=== PATIENT | female | born 1995 | race Caucasian/White ===

== ENCOUNTER 2016-07-07 02:31 | Emergency (ER) | payer OTHER ==
[~2016-07-07] VITALS: Ht 154.9 cm; Wt 49.9 kg
[2016-07-07 02:33] VITALS: BP 104/62
--- NOTE | 2016-07-07 02:46 | NUR ---
TO ER OF1
--- NOTE | 2016-07-07 02:54 | NUR ---
Patient being evaluated by physician.
[2016-07-07] MEDS ORDERED: ACETAMIN/CODEINE 120/12MG-5ML 5 ML UDC PO ONE (02:55)
[2016-07-07 03:41] VITALS: BP 97/59
--- NOTE | 2016-07-07 03:41 | NUR ---
Patient discharged with v/s stable. Written and verbal after care instructions given and explained. Patient alert, oriented and verbalized understanding of instructions. Ambulatory with steady gait. All questions addressed prior to discharge. ID band removed. Patient advised to follow up with PMD. Rx of amoxicillin and Tylenol #3 given. Patient educated on indication of medication including possible reaction and side effects. Opportunity to ask questions provided and answered.
== END 2016-07-07 03:41 | disposition home or self-care (01) ==
LOC: MED 02:31
DX: O26.892 Other specified pregnancy related conditions, second trimester (principal); J02.9 Acute pharyngitis, unspecified; O92.03 Retracted nipple associated with lactation
CPT/HCPCS: 99283

== ENCOUNTER 2018-04-07 16:51 | Emergency (ER) | payer MEDICAID, OTHER ==
[~2018-04-07] VITALS: Ht 154.9 cm; Wt 45.4 kg
[2018-04-07 16:51] VITALS: BP 115/79
--- NOTE | 2018-04-07 16:51 | NUR ---
PATIENT KOJO MARIE TO ER CHAIR Nakita
--- NOTE | 2018-04-07 17:00 | NUR ---
PT IS A 22 Y/O FEMALE BIB [employer] WHO PRESENTS TO THE ED FOR PREBOOK. PER PT SHE IS APPROX 3 MONTHS AND REPORTS DRUG USE. PT DENIES CP, SOB, N/V/D. PT DENIES PAIN AT THIS TIME. PT REPOSITIONED FOR COMFORT, SITTING IN CHAIR WITH PD. ER MD DR. PRICE NOTIFIED. WILL CONTINUE TO MONITOR. PMH--ASTHMA NKA
--- NOTE | 2018-04-07 17:15 | NUR ---
PATIENT NOW C/O OF 08/15 ABD PAIN. ER MD NOTIFIED.
--- NOTE | 2018-04-07 17:20 | NUR ---
REPORT GIVEN TO SHIMA PADILLA.
[2018-04-07 17:46] LABS: BASOPHILS % (AUTO) 0.3 % (0.0-2.0); EOSINOPHILS # (AUTO) 0.1 K/uL (0-0.4); EOSINOPHILS % (AUTO) 0.4 % (0.0-4.0); HEMATOCRIT 41.5 % (36-48); HEMOGLOBIN 13.8 g/dL (12.0-16.0); LYMPHOCYTES # (AUTO) 1.4 K/uL (2.5-16.5); LYMPHOCYTES % (AUTO) 10.7 % (20.5-51.1); MEAN CORPUSCULAR HEMOGLOBIN 30 pg (27-31); MEAN CORPUSCULAR HGB CONC 33 g/dL (33-37); MEAN CORPUSCULAR VOLUME 90.2 fL (80-94); MONOCYTES # (AUTO) 0.7 K/uL (0.8-1.0); NEUTROPHILS # (AUTO) 11.1 K/uL (1.8-7.7); NEUTROPHILS % (AUTO) 83.6 % (42.2-75.2); PLATELET COUNT (AUTO) 327 K/uL (140-450); RED BLOOD CELL COUNT(AUTO) 4.61 MIL/uL (4.20-5.40); WHITE BLOOD COUNT (AUTO) 13.3 K/uL (4.8-10.8)
[2018-04-07 17:50] LABS: APPEARANCE,URINE CLEAR (CLEAR); BILIRUBIN,URINE NEGATIVE (NEGATIVE); BLOOD, URINE NEGATIVE (NEGATIVE); COLOR,URINE YELLOW (YELLOW); LEUKOCYTE ESTERASE ,URINE NEGATIVE (NEGATIVE); NITRITE, URINE NEGATIVE (NEGATIVE); UGLUCOSE NEGATIVE (NEGATIVE)
[2018-04-07] MEDS ORDERED: NACL 0.9% 1,000 ML IV ONE (18:10)
--- NOTE | 2018-04-07 18:19 | NUR ---
BEDSIDE ULTRASOUND COMPLETED
--- NOTE | 2018-04-07 18:30 | NUR ---
PT'S FAMILY MEMBER AT BEDSIDE PER PT'S REQUEST
[2018-04-07 18:58] VITALS: BP 115/79
--- NOTE | 2018-04-07 19:00 | NUR ---
Patient discharged with v/s stable. Written and verbal after care instructions given and explained. Patient verbalized understanding. Ambulatory with steady gait. All questions addressed prior to discharge. Advised to follow up with PMD.
== END 2018-04-07 19:00 | disposition home or self-care (01) ==
LOC: MED 16:51
DX: O20.0 Threatened abortion (principal); O21.8 Other vomiting complicating pregnancy; Z3A.10 10 weeks gestation of pregnancy; Z90.49 Acquired absence of other specified parts of digestive tract
CPT/HCPCS: 36415; 76817; 81003; 81025; 84702; 85025; 86900; 86901; 99284; J7030; Q0092

== ENCOUNTER 2018-12-30 23:12 | Inpatient (IN) | payer MEDICAID ==
[~2018-12-30] VITALS: Ht 154.9 cm; Wt 53.5 kg
[2018-12-30 23:22] VITALS: BP 140/87
--- NOTE | 2018-12-30 23:25 | NUR ---
PT WHEELCHAIR ASSITED TO BED #9
[2018-12-30] MEDS ORDERED: NACL 0.9% 1,000 ML IV ONE (23:30)
[2018-12-30] MEDS ORDERED: ONDANSETRON 4 MG/2 ML VIAL IVP ONE (23:30)
[2018-12-30] MEDS ORDERED: MORPHINE SULFATE 4 MG/ML SYR IVP ONE (23:30)
--- NOTE | 2018-12-30 23:30 | NUR ---
23 Y/O F PRESENTS TO ED WITH C/O SUDDEN ONSET OF RLQ PAIN X1 DAY. 9/10 SHARP, CONSTANT PAIN THAT RADIATES TO HER BACK. +N/V/D. ABDOMEN SOFT AND DIFFUSE TENDER TO PALPATION. BOWEL SOUNDS PRESENT X4 QUADRANTS. PT PLACED IN GOWN AND ATTACHED TO MONITORING SYSTEM. BEDRAILS X2 UP. FAMILY AT BEDSIDE. WILL CONTINUE TO MONITOR.
[2018-12-30 23:47] LABS: BASOPHILS % (AUTO) 0.1 % (0.0-2.0); EOSINOPHILS # (AUTO) 0.1 K/uL (0-0.4); HEMATOCRIT 38.6 % (36-48); LYMPHOCYTES # (AUTO) 2.3 K/uL (2.5-16.5); LYMPHOCYTES % (AUTO) 35.7 % (20.5-51.1); MEAN CORPUSCULAR HEMOGLOBIN 31 pg (27-31); MEAN CORPUSCULAR HGB CONC 34 g/dL (33-37); MEAN CORPUSCULAR VOLUME 91.1 fL (80-94); MONOCYTES # (AUTO) 0.6 K/uL (0.8-1.0); MONOCYTES % (AUTO) 8.9 % (1.7-9.3); NEUTROPHILS # (AUTO) 3.4 K/uL (1.8-7.7); NEUTROPHILS % (AUTO) 53.3 % (42.2-75.2); PLATELET COUNT (AUTO) 174 K/uL (140-450); RED BLOOD CELL COUNT(AUTO) 4.24 MIL/uL (4.20-5.40); RED CELL DISTRIBUTION WIDTH 14.1 % (11.6-13.7); WHITE BLOOD COUNT (AUTO) 6.5 K/uL (4.8-10.8)
--- NOTE | 2018-12-30 23:51 | NUR ---
PATIENT UNABLE TO PROVIDE URINE SPECIMEN AT THIS TIME, IV FLUIDS INFUSING AT THIS TIME.
[2018-12-30 23:58] LABS: ANION GAP 14.2 (8-16); CARBON DIOXIDE 26.6 mmol/L (21-32); CREATININE 0.8 mg/dL (0.6-1.3); POTASSIUM 3.8 mmol/L (3.5-5.1)
[2018-12-31 00:04] LABS: ALBUMIN 3.8 g/dL (3.4-5.0); TOTAL BILIRUBIN 0.3 mg/dL (0.0-1.0)
[2018-12-31 00:12] LABS: CREATINE KINASE MB 0.6 ng/mL (0-3.6)
--- NOTE | 2018-12-31 00:12 | NUR ---
PT AMBULATED TO THE RESTROOM, SLOW STEADY GAIT OBSERVED.
[2018-12-31 00:24] LABS: APPEARANCE,URINE SL CLOUDY (CLEAR); BILIRUBIN,URINE NEGATIVE (NEGATIVE); BLOOD, URINE TRACE-L (NEGATIVE); COLOR,URINE YELLOW (YELLOW); LEUKOCYTE ESTERASE ,URINE 2+ (NEGATIVE); NITRITE, URINE NEGATIVE (NEGATIVE); UGLUCOSE NEGATIVE (NEGATIVE)
--- NOTE | 2018-12-31 00:26 | NUR ---
PT STATES DECREASED ABDOMINAL PAIN, 5/10 AT THIS TIME
[2018-12-31 00:32] LABS: WBC,URINE TOO MANY TO COUNT /HPF (0-5)
--- NOTE | 2018-12-31 00:32 | NUR ---
PATIENT TAKEN TO CT VIA WHEELCHAIR.
[2018-12-31 00:33] LABS: RBC,URINE 0-5 /HPF (0-5)
--- NOTE | 2018-12-31 00:52 | NUR ---
PATIENT BACK FROM CT, NO INCIDENTS NOTED.
[2018-12-31] MEDS ORDERED: cefTRIAXone 1,000 MG VIAL ONE (01:22)
--- NOTE | 2018-12-31 01:36 | NUR ---
ER MD AT BEDSIDE TO UPDATE PATIENT ON CAT SCAN RESULTS.
[2018-12-31] MEDS ORDERED: DOCUSATE SODIUM 100 MG GELCAP PO PRN (01:45)
[2018-12-31] MEDS ORDERED: ONDANSETRON 4 MG/2 ML VIAL IM/IVP PRN (01:45)
[2018-12-31] MEDS ORDERED: ACETAMINOPHEN 325 MG TAB PO PRN (01:45)
[2018-12-31] MEDS ORDERED: FERR-15 PO (01:46)
[2018-12-31] MEDS ORDERED: CIPR500T4 PO (01:46)
[2018-12-31] MEDS ORDERED: IBUP-2213 PO (01:46)
[2018-12-31] MEDS ORDERED: ONDA8TAB PO (01:46)
[2018-12-31] MEDS ORDERED: PREN-380 PO (02:08)
--- NOTE | 2018-12-31 02:19 | NUR ---
Patient will be admitted to care of . Admited to [facility]. Will go to room bed 126A. Belongings list completed and initialed. Report to VALERIE Roblero.
[2018-12-31 02:20] VITALS: BP 105/69
[2018-12-31 02:20] LABS: MAGNESIUM 1.6 mg/dL (1.8-2.4); PHOSPHORUS 3.7 mg/dL (2.5-4.9); THYROID STIMULATING HORMONE 1.63 uIU/mL (0.34-3.74)
--- NOTE | 2018-12-31 02:20 | NUR ---
REPORT RECEIVED FROM ED NURSE AT BEDSIDE. PT IN STABLE CONDITION. AAOX4. INTRODUCED SELF TO PT. BOARD UPDATED. PT HAS COMPLAINTS OF PAIN. WILL MEDICATE. NO SOB. AFEBRILE. PT IS AMBULATORY. IV SITE L AC 20G RUNNING NS@60ML/HR PATENT AND INTACT. SKIN WARM, DRY, AND INTACT WITH NO OPEN WOUNDS. BED LOCKED IN LOW POSITION. CALL DEVRIES WITHIN REACH. SAFETY PRECAUTION IN PLACE. ALL NEEDS MET AT THIS TIME.
[2018-12-31 02:22] LABS: PROTHROMBIN TIME 10.5 secs (10.8-13.4)
[2018-12-31] MEDS ORDERED: MORPHINE SULFATE 2 MG/ML SYR IVP SCH (02:30)
[2018-12-31 02:40] LABS: BARBITURATE, URINE NEG. ng/ml (NEG <=200); BENZODIAZEPINE, URINE NEG. ng/mL (NEG <=200); CANNABINOID, URINE NEG. ng/mL (NEG <=50); COCAINE, URINE NEG. ng/mL (NEG <=300); OPIATE, URINE POS. ng/mL (NEG <=2000); PHENCYCLIDINE SCREEN,URINE NEG. ng/mL (NEG <=25)
[2018-12-31] MEDS: NACL 0.9% 1,000 ML IV SCH ×2 (02:41→18:25)
[2018-12-31] MEDS ORDERED: MAG SULF 2000 MG/WATER PREMIX 50 ML IV SCH (02:45)
--- NOTE | 2018-12-31 02:52 | NUR ---
HUNG AND RUNNING FOR LEVEL OF 1.6. MORPHINE GIVEN FOR 6/10 ABDOMINAL PAIN. PT TOLERATED WELL.
[2018-12-31] MEDS: PHENAZOPYRIDINE 100 MG TAB PO SCH ×3 (04:07→20:16)
--- NOTE | 2018-12-31 04:07 | NUR ---
PYRIDIUM GIVEN PO. PT TOLERATED WELL.
[2018-12-31 06:29] LABS: EOSINOPHILS # (AUTO) 0.1 K/uL (0-0.4); EOSINOPHILS % (AUTO) 1.6 % (0.0-4.0); HEMATOCRIT 36.5 % (36-48); HEMOGLOBIN 12.2 g/dL (12.0-16.0); LYMPHOCYTES # (AUTO) 1.8 K/uL (2.5-16.5); LYMPHOCYTES % (AUTO) 32.6 % (20.5-51.1); MEAN CORPUSCULAR HEMOGLOBIN 31 pg (27-31); MEAN CORPUSCULAR HGB CONC 34 g/dL (33-37); MEAN CORPUSCULAR VOLUME 92.4 fL (80-94); MONOCYTES # (AUTO) 0.5 K/uL (0.8-1.0); MONOCYTES % (AUTO) 9.4 % (1.7-9.3); NEUTROPHILS # (AUTO) 3.1 K/uL (1.8-7.7); NEUTROPHILS % (AUTO) 56.4 % (42.2-75.2); PLATELET COUNT (AUTO) 156 K/uL (140-450); RED BLOOD CELL COUNT(AUTO) 3.95 MIL/uL (4.20-5.40); WHITE BLOOD COUNT (AUTO) 5.5 K/uL (4.8-10.8)
--- NOTE | 2018-12-31 06:50 | NUR ---
PT SLEEPING COMFORTABLY IN BED BUT AROUSABLE. NO S/S OF DISTRESS NOTED. PT IN STABLE CONDITION.
--- NOTE | 2018-12-31 07:00 | NUR ---
RECEIVED REPORT FROM NIGHT RN. PATIENT IS RESTING QUIETLY IN BED, FATHER AT BEDSIDE. PATIENT IS ON ROOM AIR, AAOX4. FULL CODE, NKA. IV PRESENT TO LEFT FOREARM. LBM 12/30. SKIN IS INTACT. PATIENT IS CURRENTLY EXPERIENCING PAIN BUT NO PAIN RX IN [facility]. INFORMED PATIENT THAT RESIDENTS WILL BE ROUNDING AND WILL INFORM THEM OF PAIN ONCE ROUNDING IS INITIATED. WILL REVIEW AND CONTINUE [facility] PLAN OF CARE FOR THE DAY
[2018-12-31 07:10] LABS: MAGNESIUM 2.3 mg/dL (1.8-2.4); PHOSPHORUS 3.8 mg/dL (2.5-4.9)
[2018-12-31 08:00] VITALS: BP 112/77
[2018-12-31 08:00] LABS: ANION GAP 11.7 (8-16); CARBON DIOXIDE 24.9 mmol/L (21-32); CREATININE 0.7 mg/dL (0.6-1.3); POTASSIUM 3.6 mmol/L (3.5-5.1)
--- NOTE | 2018-12-31 08:20 | NUR ---
PATIENT HAS BEEN SCREENED AND CATEGORIZED LOW NUTRITION RISK. PATIENT WILL BE SEEN WITHIN 7 DAYS OF ADMISSION. 01/06/[address]
[2018-12-31] MEDS ORDERED: NON-FORMULARY ITEM (Prenatal Vit/Iron Fumarate/FA (Prenatal Tablet) 1 TAB) PO SCH (09:00)
[2018-12-31] MEDS: LACTOBACILLUS RHAMNOSUS GG 1 EACH CAP PO SCH (09:14)
[2018-12-31] MEDS: MULTIVIT/MIN/CA/FE/FA 1 TAB PO SCH (09:15)
--- NOTE | 2018-12-31 09:16 | NUR ---
ADMINISTERED MORNING MEDICATION. PATIENT RE-STATED SHE IS IN PAIN. TALKED TO RESIDENT DR FIELD ABOUT ORDERING SOMETHING FOR PAIN. WILL F/U
[2018-12-31] MEDS: KETOROLAC 30 MG/ML VIAL IVP PRN ×2 (10:39→16:27)
--- NOTE | 2018-12-31 10:42 | NUR ---
ADMINISTERED PAIN MEDICATION FOR PAIN 07/16. WILL RE-ASSESS PAIN
--- NOTE | 2018-12-31 10:55 | NUR ---
DC PLANNIN23 YEAR OLD FEMALE PATIENT FROM HOME, ADMITTED DUE TO CONSTANT ABDOMINA PAIN X1 DAY. PAST MEDICAL AND SURGICAL HISTORY INCLUDE DIVERTICULITIS AND APPENDECTOMY. INITIAL DIAGNOSIS OF UTI. ABDOMINAL CT NORMAL. CXR NORMAL. ON ROCEPHIN. ON ROOM AIR. DC PLAN PENDING ON PATIENT'S RESPONSE TO TREATMENT.
--- NOTE | 2018-12-31 11:12 | NUR ---
PT IS SLEEPING IN BED, VISIBLE CHEST RISE AND FALL. NO COMPLAINTS AT THIS TIME.
--- NOTE | 2018-12-31 13:00 | NUR ---
PT IS SITTING UP IN BED EATING LUNCH. NO COMPLAINTS AT THIS TIME. FATHER IS AT BEDSIDE.
[2018-12-31 16:00] VITALS: BP 113/74
[2018-12-31 16:03] LABS: CHOL/HDL RATIO 3.1 (1-4.5)
--- NOTE | 2018-12-31 16:14 | NUR ---
Tire Inspector Note: Basic Screen: Yes High Risk DC Screen [employer]: JACLYN Clements Relationship: MOTHER Pre-Admission Living Arrangements: Lives with Other Other: MOTHER Prior ADL Independent Current Home Health Name/Tel: N/A Current DME/02 Name/Tel: N/A Current Hospice Name/Tel: N/A Current Dialysis Name/Tel: N/A Healthcare Decision Maker: Patient Advance Directive No - REFUSED Physician Orders for Life Sustaining Treatment Form No Patient/Family Have Educational Needs No Information Taught: Advance Directive Person Taught: Patient Teaching Tools: Verbal Factors Affecting Learning: None Evaluation: Verbalizes Understanding Needs Additional Education: No Discipline: Case Mgt/Social Svcs Tentative Discharge Plan/Destination: No Needs Identified Will require assistance post discharge: No Referred to Medical Care Administrator: No Tentative Discharge Plan Summary: Patient is a 23-year-old female admitted for UTI. Patient has PMHX of diverticulitis. Patient was admitted from home. HIRAM verified demographics with patient. Patient stated she lives with her mother at [address] [place] [address] with her mother. Patient denies history of mental health and history of substance abuse. SW offered education for advanced directive and patient refused at this time. Patients tentative plan after discharge is to return home. No further needs identified. Signature: LESLY Sparks Date: Dec 31, 2018 Time: 16:20
--- NOTE | 2018-12-31 16:30 | NUR ---
ADMINISTERED ZOFRAN FOR NAUSEA AND TORADOL FOR PAIN 07/16.
--- NOTE | 2018-12-31 18:20 | NUR ---
PT SLEEPING QUIETLY IN BED. NO COMPLAINTS, NO DISTRESS. ALL NEEDS HAVE BEEN MET. WILL ENDORSE TO NEXT SHIFT FOR CONTINUITY OF CARE
--- NOTE | 2018-12-31 19:35 | NUR ---
Received endorsement from AM shift RN; patient A/Ox4, able to make needs known, Nam[place]ian speaking, ambulatory. Patient eating dinner; introduced self, updated board. No SOB or distress noted, on room air. IV site noted on left antecubital, 20 gauge, running NS at 60mL/hr. Skin intact. Bed in the lowest position, call light within reach. Initial assessment done. Will continue to monitor.
--- NOTE | 2018-12-31 21:25 | NUR ---
Due meds given, tolerated well.
--- NOTE | 2018-12-31 23:40 | NUR ---
Vitals taken; patient asleep, eyes closed, visible chest rise and fall noted.
[2019-01-01] VITALS: BP 108/76
--- NOTE | 2019-01-01 01:10 | NUR ---
Rounds done; patient asleep, eyes closed, visible chest rise and fall noted.
--- NOTE | 2019-01-01 03:40 | NUR ---
Checks made; no SOB or distress noted. Patient resting comfortably, visible chest rise and fall noted.
[2019-01-01] MEDS: PHENAZOPYRIDINE 100 MG TAB PO SCH ×2 (04:28→12:45)
--- NOTE | 2019-01-01 05:16 | NUR ---
Rounds done; no SOB or distress noted.
[2019-01-01 05:33] LABS: BASOPHILS % (AUTO) 0.3 % (0.0-2.0); EOSINOPHILS # (AUTO) 0.1 K/uL (0-0.4); EOSINOPHILS % (AUTO) 3.1 % (0.0-4.0); HEMATOCRIT 36.3 % (36-48); HEMOGLOBIN 12.3 g/dL (12.0-16.0); LYMPHOCYTES # (AUTO) 2.3 K/uL (2.5-16.5); LYMPHOCYTES % (AUTO) 51.5 % (20.5-51.1); MEAN CORPUSCULAR HEMOGLOBIN 31 pg (27-31); MEAN CORPUSCULAR HGB CONC 34 g/dL (33-37); MEAN CORPUSCULAR VOLUME 90.9 fL (80-94); MONOCYTES # (AUTO) 0.4 K/uL (0.8-1.0); MONOCYTES % (AUTO) 9.5 % (1.7-9.3); NEUTROPHILS # (AUTO) 1.6 K/uL (1.8-7.7); NEUTROPHILS % (AUTO) 35.6 % (42.2-75.2); PLATELET COUNT (AUTO) 174 K/uL (140-450); RED BLOOD CELL COUNT(AUTO) 3.99 MIL/uL (4.20-5.40); RED CELL DISTRIBUTION WIDTH 13.8 % (11.6-13.7); WHITE BLOOD COUNT (AUTO) 4.5 K/uL (4.8-10.8)
[2019-01-01] MEDS: KETOROLAC 30 MG/ML VIAL IVP PRN (05:47)
--- NOTE | 2019-01-01 06:08 | NUR ---
Vitals stable, due meds given. Will endorse to AM shift RN for continuity of care.
[2019-01-01 07:00] LABS: ANION GAP 10.8 (8-16); CARBON DIOXIDE 27.5 mmol/L (21-32); CREATININE 0.6 mg/dL (0.6-1.3); POTASSIUM 3.3 mmol/L (3.5-5.1)
--- NOTE | 2019-01-01 07:13 | NUR ---
RECEIVED BED SIDE REPORT FROM TIME STUDY ENGINEER NURSE. PATIENT IN STABLE CONDITION, NO DISTRESS NOTED. WILL CONTINUE TO FOLLOW UP.
[2019-01-01 08:00] VITALS: BP 96/58
[2019-01-01] MEDS ORDERED: CEPH250C16 PO (08:38)
[2019-01-01] MEDS ORDERED: DOCU-299 PO (08:38)
[2019-01-01] MEDS ORDERED: HYDR-5122 PO (08:38)
[2019-01-01] MEDS ORDERED: LACT1CAP21 PO (08:38)
[2019-01-01] MEDS: MULTIVIT/MIN/CA/FE/FA 1 TAB PO SCH (09:29)
[2019-01-01] MEDS: LACTOBACILLUS RHAMNOSUS GG 1 EACH CAP PO SCH (09:29)
--- NOTE | 2019-01-01 09:34 | NUR ---
AT THE BEDSIDE WITH PATIENT, CALM, NOT DISTRESS NOTED. TALKING TO SPOUSE AT THE BEDSIDE. SCHEDULED MEDS GIVEN AT THIS TIME.
[2019-01-01] MEDS ORDERED: INFLUENZA VACCINE QUAD 0.5 ML SYR IMVAC PRN (10:15)
[2019-01-01] MEDS: NACL 0.9% 1,000 ML IV SCH (11:05)
[2019-01-01] MEDS ORDERED: POTASSIUM CHLORIDE 10 MEQ TABER PO SCH (11:30)
--- NOTE | 2019-01-01 11:55 | NUR ---
PATIENT RESTING IN BED, CALM WITH FATHER AT THE BEDSIDE. WILL CONTINUE TO MONITOR.
[2019-01-01] MEDS ORDERED: POTASSIUM CHLORIDE 40 MEQ, LIDOCAINE MPF 1% 25 MG in NACL 0.9% 250 ML IV SCH (12:00)
--- NOTE | 2019-01-01 13:23 | NUR ---
AT THE BEDSIDE WITH PATIENT FOR DISCHARGE INSTRUCTIONS. PATIENT EDUCATED ON MEDICATION REGIMEN AND PLAN OF CARE. PATIENT VERBALIZED UNDERSTANDING TO FOLLOW UP WITH DR GLORIA. MEDICATIONS GIVEN TO PATIENT ALONG WITH A LIST OF TOTAL MEDICATIONS GIVEN DURING HOSPITALIZATION. EXCUSE NOTE FOR WORK AND SCHOOL GIVEN TO PATIENT. ANSWERED ALL PATIENTS QUESTION . PATIENT IS TO GET DRESS FOR DISCHARGE.
--- NOTE | 2019-01-01 13:29 | NUR ---
PATIENT DRESSED, IN STABLE CONDITION, IV DISCONTINUED WITH LUMEN IN TACT, NO SWELLING OR REDNESS NOTED. PATIENT ESCORTED WITH FATHER TO THE LOBBY. PATIENT DISCHARGED AT THIS TIME.
== END 2019-01-01 13:30 | disposition home or self-care (01) | DRG 463 ==
LOC: MED 23:12 → MMU 12-31 01:52
PROVIDERS: ADMIT General Practice; ATTEND General Practice
DX: N39.0 Urinary tract infection, site not specified (principal); E83.42 Hypomagnesemia; R82.4 Acetonuria; R31.9 Hematuria, unspecified; Z79.899 Other long term (current) drug therapy; Z90.49 Acquired absence of other specified parts of digestive tract
CPT/HCPCS: 36415; 71045; 80048; 80053; 80305; 81001; 82150; 82550; 82553; 83036; 83605; 83690; 83735; 83880; 84100; 84443; 84484; 85025; 85610; 85730; 87040; 87081; 87086; 96361; 96365; 96375; 99285; J0696; J1885; J2001; J2270; J2405; J3475; J3480; J7030; J7060; Q0092

== ENCOUNTER 2023-03-06 18:13 | Emergency (ER) | payer OTHER ==
[~2023-03-06] VITALS: Ht 154.9 cm; Wt 68.0 kg
[~2023-03-06 18:13] MED LIST: CEPH250C16 PO; DOCU-299 PO; HYDR-5122 PO; LACT1CAP21 PO; ONDA8TAB87 PO; PREN-380 PO
[2023-03-06 18:27] VITALS: BP 117/73; PULSE 103; RESP 16; TEMP 97.8; O2SAT 95
[2023-03-06 18:59] LABS: APPEARANCE,URINE CLEAR (CLEAR); BILIRUBIN,URINE 1+ (NEGATIVE); BLOOD, URINE NEGATIVE (NEGATIVE); COLOR,URINE YELLOW (YELLOW); LEUKOCYTE ESTERASE ,URINE NEGATIVE (NEGATIVE); NITRITE, URINE POSITIVE (NEGATIVE); PROTEIN,URINE NEGATIVE (NEGATIVE); UGLUCOSE NEGATIVE (NEGATIVE); UROBILINOGEN,URINE 0.2 EU/dL (0.2 - 1)
[2023-03-06] MEDS ORDERED: ONDANSETRON 4 MG ODT PO ONE (19:00)
[2023-03-06] MEDS ORDERED: KETOROLAC 30 MG/ML VIAL IM ONE (19:00)
[2023-03-06 19:16] LABS: ICTOTEST NEGATIVE (NEGATIVE)
[2023-03-06 19:20] LABS: BACTERIA,URINE FEW /HPF (None Seen); RBC,URINE 0-5 /HPF (0-5); SQUAMOUS EPITHELIAL CELL,UR 4-10 (MOD) /LPF (0-3 (FEW)); WBC,URINE 0-5 /HPF (0-5)
[2023-03-06] MEDS ORDERED: PYR100 PO (19:23)
[2023-03-06] MEDS ORDERED: CEPH250C16 PO (19:23)
== END 2023-03-06 19:32 | disposition home or self-care (01) ==
LOC: MED 18:13
DX: N30.00 Acute cystitis without hematuria (principal); Z79.899 Other long term (current) drug therapy
CPT/HCPCS: 81001; 81025; 96372; 99283; J1885; Q0162

== ENCOUNTER 2023-05-13 21:29 | Emergency (ER) | payer OTHER ==
[~2023-05-13] VITALS: Ht 152.4 cm; Wt 72.6 kg
[~2023-05-13 21:29] MED LIST changes: +PYR100 PO
[2023-05-13 21:40] VITALS: BP 111/86; PULSE 100; RESP 19; TEMP 97.9; O2SAT 99
[2023-05-13] MEDS: MORPHINE SULFATE 4 MG/ML SYR IVP ONE (23:32)
[2023-05-13 23:36] LABS: BILIRUBIN,URINE NEGATIVE (NEGATIVE); BLOOD, URINE 1+ (NEGATIVE); COLOR,URINE YELLOW (YELLOW); LEUKOCYTE ESTERASE ,URINE 1+ (NEGATIVE); NITRITE, URINE NEGATIVE (NEGATIVE); PROTEIN,URINE NEGATIVE (NEGATIVE); UGLUCOSE NEGATIVE (NEGATIVE); UROBILINOGEN,URINE 0.2 EU/dL (0.2 - 1)
[2023-05-13] MEDS: ONDANSETRON 4 MG/2 ML VIAL IVP ONE (23:36)
[2023-05-13 23:37] LABS: APPEARANCE,URINE SLIGHTLY CLOUDY (CLEAR)
[2023-05-13 23:39] LABS: BACTERIA,URINE 1+ /HPF (None Seen); MUCUS,URINE None Seen /LPF (None Seen); RBC,URINE 0-5 /HPF (0-5); SQUAMOUS EPITHELIAL CELL,UR 0-3 (FEW) /LPF (0-3 (FEW)); WBC,URINE 0-5 /HPF (0-5)
[2023-05-13 23:52] LABS: BASOPHILS % (AUTO) 0.5 % (0.0-2.0); EOSINOPHILS # (AUTO) 0.5 K/uL (0-0.4); EOSINOPHILS % (AUTO) 6.1 % (0.0-4.0); HEMATOCRIT 41.3 % (36-48); HEMOGLOBIN 14.5 g/dL (12.0-16.0); LYMPHOCYTES # (AUTO) 3.4 K/uL (2.5-16.5); LYMPHOCYTES % (AUTO) 38.3 % (20.5-51.1); MEAN CORPUSCULAR HEMOGLOBIN 32 pg (27-31); MEAN CORPUSCULAR HGB CONC 35 g/dL (33-37); MEAN CORPUSCULAR VOLUME 90.1 fL (80-94); MONOCYTES # (AUTO) 0.7 K/uL (0.8-1.0); MONOCYTES % (AUTO) 7.5 % (1.7-9.3); NEUTROPHILS # (AUTO) 4.2 K/uL (1.8-7.7); NEUTROPHILS % (AUTO) 47.6 % (42.2-75.2); PLATELET COUNT (AUTO) 340 K/uL (140-450); RED BLOOD CELL COUNT(AUTO) 4.59 MIL/uL (4.20-5.40); RED CELL DISTRIBUTION WIDTH 12.9 % (11.6-13.7); WHITE BLOOD COUNT (AUTO) 8.8 K/uL (4.8-10.8)
[2023-05-14] LABS: ANION GAP 14.1 (8-16); CALCIUM 9.4 mg/dL (8.5-10.1); CARBON DIOXIDE 25.6 mmol/L (21-32); CREATININE 0.9 mg/dL (0.6-1.3); POTASSIUM 3.7 mmol/L (3.5-5.1)
[2023-05-14] MEDS: metroNIDAZOLE 500 MG/NS PREMIX 100 ML IV ONE (00:08)
[2023-05-14] MEDS: LEVOFLOXACIN 500 MG/D5W PREMIX 100 ML IV ONE (00:08)
[2023-05-14 00:10] LABS: LACTIC ACID 1.1 mmol/L (0.4-2.0)
[2023-05-14 00:27] LABS: ALBUMIN 4.5 g/dL (3.4-5.0); BILIRUBIN,DIRECT 0.1 mg/dL (0.0-0.3); TOTAL BILIRUBIN 0.3 mg/dL (0.0-1.0); TOTAL PROTEIN, SERUM 8.1 g/dL (6.4-8.2)
[2023-05-14] MEDS: MORPHINE SULFATE 4 MG/ML SYR IVP ONE (02:52)
[2023-05-14] MEDS: ONDANSETRON 4 MG/2 ML VIAL IVP ONE (02:53)
[2023-05-14] MEDS ORDERED: CARI1.5C PO (06:25)
[2023-05-14 07:09] VITALS: BP 104/54; PULSE 75; RESP 16; TEMP 97.9; O2SAT 95
== END 2023-05-14 07:09 | disposition home or self-care (01) ==
LOC: MED 21:29
DX: K30 Functional dyspepsia (principal); Z79.899 Other long term (current) drug therapy
CPT/HCPCS: 36415; 74176; 76700; 80048; 80076; 81001; 81025; 83605; 85025; 87040; 87086; 87210; 96365; 96368; 96375; 96376; 99285; J1956; J2270; J2405; J3490; Q0092

== ENCOUNTER 2023-06-04 18:09 | Emergency (ER) | payer OTHER ==
[~2023-06-04] VITALS: Ht 157.5 cm; Wt 73.0 kg
[~2023-06-04 18:09] MED LIST changes: +CARI1.5C PO; -CEPH250C16 PO; -DOCU-299 PO; -HYDR-5122 PO; -LACT1CAP21 PO; -ONDA8TAB87 PO; -PREN-380 PO; -PYR100 PO
[2023-06-04 18:44] VITALS: BP 113/73; PULSE 92; RESP 20; TEMP 97.7; O2SAT 98
[2023-06-04] MEDS ORDERED: ONDA8TAB87 PO (19:22)
[2023-06-04] MEDS ORDERED: ACET-8905 PO (19:22)
[2023-06-04] MEDS ORDERED: DICYCLOMINE HCL LIQUID 10 MG/5 ML UDC ONE (19:26)
[2023-06-04] MEDS ORDERED: ALUMINUM HYD/MAG/SIMETHICONE 30 ML UDC ONE (19:26)
[2023-06-04] MEDS: DICYCLOMINE HCL LIQUID 20 MG, ALUMINUM HYD/MAG/SIMETHICONE 30 ML, LIDOCAINE VISCOUS 2% ... PO ONE (19:28)
[2023-06-04] MEDS: NACL 0.9% 1,000 ML IV ONE (19:29)
[2023-06-04] MEDS: KETOROLAC 30 MG/ML VIAL IVP ONE (19:29)
[2023-06-04] MEDS: ONDANSETRON 4 MG/2 ML VIAL IVP ONE (19:30)
[2023-06-04 19:37] LABS: BASOPHILS % (AUTO) 0.4 % (0.0-2.0); EOSINOPHILS # (AUTO) 0.8 K/uL (0-0.4); EOSINOPHILS % (AUTO) 8.1 % (0.0-4.0); HEMATOCRIT 40.2 % (36-48); HEMOGLOBIN 14.4 g/dL (12.0-16.0); LYMPHOCYTES # (AUTO) 3.1 K/uL (2.5-16.5); LYMPHOCYTES % (AUTO) 32.7 % (20.5-51.1); MEAN CORPUSCULAR HEMOGLOBIN 32 pg (27-31); MEAN CORPUSCULAR HGB CONC 36 g/dL (33-37); MEAN CORPUSCULAR VOLUME 89.8 fL (80-94); MONOCYTES # (AUTO) 0.7 K/uL (0.8-1.0); NEUTROPHILS # (AUTO) 4.9 K/uL (1.8-7.7); NEUTROPHILS % (AUTO) 51.8 % (42.2-75.2); PLATELET COUNT (AUTO) 324 K/uL (140-450); RED BLOOD CELL COUNT(AUTO) 4.48 MIL/uL (4.20-5.40); WHITE BLOOD COUNT (AUTO) 9.4 K/uL (4.8-10.8)
[2023-06-04 19:48] LABS: CALCIUM 9.1 mg/dL (8.5-10.1); CARBON DIOXIDE 25.6 mmol/L (21-32); CREATININE 0.7 mg/dL (0.6-1.3); POTASSIUM 3.6 mmol/L (3.5-5.1)
[2023-06-04 20:09] LABS: BILIRUBIN,DIRECT 0.1 mg/dL (0.0-0.3); TOTAL BILIRUBIN 0.3 mg/dL (0.0-1.0); TOTAL PROTEIN, SERUM 7.4 g/dL (6.4-8.2)
[2023-06-04 20:17] VITALS: BP 108/73; PULSE 92; RESP 20; TEMP 98; O2SAT 98
== END 2023-06-04 20:17 | disposition home or self-care (01) ==
LOC: MED 18:09
DX: R10.13 Epigastric pain (principal); R11.2 Nausea with vomiting, unspecified; R19.7 Diarrhea, unspecified; Z79.899 Other long term (current) drug therapy
CPT/HCPCS: 36415; 80048; 80076; 81002; 81025; 83690; 85025; 96361; 96374; 96375; 99284; J1885; J2405; J7030

== ENCOUNTER 2023-06-09 14:00 | Emergency (ER) | payer OTHER ==
[~2023-06-09] VITALS: Ht 154.9 cm; Wt 72.6 kg
[~2023-06-09 14:00] MED LIST changes: +ACET-8905 PO; +ONDA8TAB87 PO
[2023-06-09 14:23] VITALS: BP 119/84; PULSE 99; RESP 0; TEMP 98.6; O2SAT 21
[2023-06-09 15:58] LABS: BASOPHILS % (AUTO) 0.5 % (0.0-2.0); EOSINOPHILS # (AUTO) 0.6 K/uL (0-0.4); EOSINOPHILS % (AUTO) 5.6 % (0.0-4.0); HEMATOCRIT 43.6 % (36-48); HEMOGLOBIN 15.5 g/dL (12.0-16.0); LYMPHOCYTES # (AUTO) 2.8 K/uL (2.5-16.5); LYMPHOCYTES % (AUTO) 27.4 % (20.5-51.1); MEAN CORPUSCULAR HEMOGLOBIN 32 pg (27-31); MEAN CORPUSCULAR HGB CONC 35 g/dL (33-37); MEAN CORPUSCULAR VOLUME 90.6 fL (80-94); MONOCYTES # (AUTO) 0.7 K/uL (0.8-1.0); MONOCYTES % (AUTO) 6.9 % (1.7-9.3); NEUTROPHILS % (AUTO) 59.6 % (42.2-75.2); PLATELET COUNT (AUTO) 358 K/uL (140-450); RED BLOOD CELL COUNT(AUTO) 4.82 MIL/uL (4.20-5.40); WHITE BLOOD COUNT (AUTO) 10.1 K/uL (4.8-10.8)
[2023-06-09 16:04] LABS: BILIRUBIN,URINE NEGATIVE (NEGATIVE); BLOOD, URINE 3+ (NEGATIVE); COLOR,URINE YELLOW (YELLOW); LEUKOCYTE ESTERASE ,URINE NEGATIVE (NEGATIVE); NITRITE, URINE NEGATIVE (NEGATIVE); PROTEIN,URINE NEGATIVE (NEGATIVE); UGLUCOSE NEGATIVE (NEGATIVE); UROBILINOGEN,URINE 0.2 EU/dL (0.2 - 1)
[2023-06-09 16:06] LABS: APPEARANCE,URINE TURBID (CLEAR)
[2023-06-09] MEDS: NACL 0.9% 1,000 ML IV ONE (16:07)
[2023-06-09] MEDS: ALUMINUM HYD/MAG/SIMETHICONE 30 ML UDC PO ONE (16:09)
[2023-06-09] MEDS: ONDANSETRON 4 MG/2 ML VIAL IVP ONE (16:11)
[2023-06-09 16:12] LABS: ANION GAP 12.6 (8-16); CALCIUM 9.6 mg/dL (8.5-10.1); CARBON DIOXIDE 27.6 mmol/L (21-32); CREATININE 0.7 mg/dL (0.6-1.3); POTASSIUM 4.2 mmol/L (3.5-5.1)
[2023-06-09 16:16] LABS: BACTERIA,URINE FEW /HPF (None Seen); RBC,URINE 0-5 /HPF (0-5); SQUAMOUS EPITHELIAL CELL,UR 4-10 (MOD) /LPF (0-3 (FEW)); WBC,URINE 0-5 /HPF (0-5)
[2023-06-09] MEDS: PANTOPRAZOLE 40 MG INJ VIAL IVP ONE (16:16)
[2023-06-09 16:17] LABS: AMPHETAMINE, URINE NEGATIVE ng/ml (NEG <=1000); BARBITURATE, URINE NEGATIVE ng/ml (NEG <=200); BENZODIAZEPINE, URINE NEGATIVE ng/mL (NEG <=200); CANNABINOID, URINE NEGATIVE ng/mL (NEG <=50); COCAINE, URINE NEGATIVE ng/mL (NEG <=300); OPIATE, URINE NEGATIVE ng/mL (NEG <=2000); PHENCYCLIDINE SCREEN,URINE NEGATIVE ng/mL (NEG <=25)
[2023-06-09 16:29] LABS: ALBUMIN 4.5 g/dL (3.4-5.0); BILIRUBIN,DIRECT 0.1 mg/dL (0.0-0.3); TOTAL BILIRUBIN 0.4 mg/dL (0.0-1.0); TOTAL PROTEIN, SERUM 8.1 g/dL (6.4-8.2)
[2023-06-09] MEDS ORDERED: SUCR1TAB56 PO (18:09)
[2023-06-09] MEDS ORDERED: ONDA-188 SL (18:09)
[2023-06-09] MEDS ORDERED: KETOROLAC 30 MG/ML VIAL ONE (18:34)
[2023-06-09 18:39] VITALS: BP 104/69; PULSE 83; RESP 16; TEMP 37.00296; O2SAT 98
[2023-06-09] MEDS: KETOROLAC 30 MG/ML VIAL IVP ONE (18:40)
== END 2023-06-09 18:39 | disposition home or self-care (01) ==
LOC: MED 14:00
DX: R10.33 Periumbilical pain (principal); R11.10 Vomiting, unspecified; Z79.899 Other long term (current) drug therapy
CPT/HCPCS: 36415; 76705; 80048; 80076; 80305; 81001; 81025; 83690; 85025; 96361; 96365; 96366; 96375; 99285; C9113; J1885; J2405; J7030